=== PATIENT | female | born 1970 | race Caucasian/White ===

== ENCOUNTER → 2020-02-20 18:35 | Outpatient (CLI) | payer SELFPAY ==
--- NOTE | ~2020-02-20 | MM_ITS ---
EXAMINATION: MM screening demetrius BI w valerie HISTORY: Screening mammogram TECHNIQUE: Craniocaudal and mediolateral oblique 3-D tomosynthesis images were obtained and synthetic 2-D images were generated. CAD analysis was submitted and interpreted. COMPARISON: No prior mammogram is available for comparison at this institution. BREAST PARENCHYMAL COMPOSITION: The breasts are extremely dense, which lowers the sensitivity of mamm ography. FINDINGS: Benign calcified microhematomas are noted on the left. There is no evidence of suspicious m ass, calcification, or architectural distortion to suggest malignancy in either breast. There has bee n no suspicious interval change. IMPRESSION: 1. No mammographic evidence of malignancy. 2. Recommend routine screening mammography in one year. BI-RADS Category 2: Benign finding(s). Reviewed, dictated and finalized at location A[facility]
== END ==
PROVIDERS: Visit Provider Surgery Plastic and Reconstructive Surgery
DX: Z12.31 Encounter for screening mammogram for malignant neoplasm of breast (principal)
CPT/HCPCS: 77063; 77067

== ENCOUNTER 2020-03-08 01:12 | Outpatient (CLI) | payer OTHER, SELFPAY ==
[2020-03-08 20:15] LABS: SARS-CoV-2 RNA PCR Negative
== END 2020-03-08 01:13 | disposition home or self-care (01) ==
LOC: ANHCOVIDDT 01:12
PROVIDERS: Visit Provider Surgery Plastic and Reconstructive Surgery
DX: Z01.818 Encounter for other preprocedural examination (principal); Z20.828 Contact with and (suspected) exposure to other viral communicable diseases
CPT/HCPCS: 87635; C9803; U0003

== ENCOUNTER 2020-03-11 01:34 | Day surgery (SDC) | payer OTHER, SELFPAY ==
[2020-03-04 08:53] VITALS: BMI 20.4
--- NOTE | 2020-03-10 12:23 | WPDANESEPPF ---
Anes - Initial Pre Proc Eval Procedure: Operation Date: 03/11/20 12:00 Proposed Procedures p Bilateral Breast Augmentation - Baudilio Cordova MD Date/Time: 03/10/20 12:23 Surgeon: Baudilio Cordova MD Pre Op Diagnosis: Micromastia Patient Data Age: 49 Gender: F Height: 1.6 m Weight: 52.3 kg Allergies Allergy/AdvReac Type Severity Reaction Status Date / Time No Known Allergies Allergy Verified 03/11/20 10:16 Home Medications Medication Instructions Recorded Confirmed Type alprazolam 1 mg tablet 1 mg PO DAILY 02/13/20 03/11/20 History dextroamphetamine-amphetamine 30 mg PO BID 03/04/20 03/11/20 History [Adderall] docusate sodium 100 mg capsule 100 mg PO DAILY #14 cap 03/06/20 03/11/20 Rx ondansetron HCl 4 mg tablet 4 mg PO Q8H #28 tablet 03/06/20 03/11/20 Rx carisoprodol 350 mg tablet 350 mg PO TID PRN #21 tablet 03/10/20 03/11/20 Rx hydrocodone 5 mg-acetaminophen 325 1 tablet PO Q6H PRN #10 tablet 03/10/20 03/11/20 Rx mg tablet Patient hx anesthesia problems: none Family hx anesthesia problems: none PMFSH Past Medical History Medical History (Updated 03/10/20 @ 12:23 by Hugo James DO) Anxiety Heart murmur No pertinent family history 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 Surgical History Surgical History H/O section Hx of tonsillectomy Tubal ligation status Social History Social History Years smoked: 20 Smoking status: Current every day smoker Tobacco type: cigarettes Substance use: former Substance use type: former substance user Other substance usage details: see Dr office visit notes Living arrangements: with family Spiritual care concerns: No Anes - Eval Final PreProcedure Day of Procedure 03/10/20 12:23 Patient weight: normal Heart: regular rate and rhythm Lungs: clear to auscultation and normal air movement Airway: Mallampati scale class II Neurological: alert and oriented Last oral intake: >/= 8 hours ASA classification: III Emergent: no Anesthetic plan: proceed Anesthesia type and monitoring: general LMA and standard monitoring Informed Consent: The patient's anesthetic plan and its attendant risks and benefits were discussed with the patient/family/POA. Questions were solicited and answers provided to the satisfaction of the patient/family/POA.
[2020-03-11] VITALS (8 sets, daily range): BP systolic 125–169; BP diastolic 44–92; PULSE 67–91; RESP 11–16; TEMP 36.3–36.5; O2SAT 95–100; BMI 20.2
[2020-03-11] MEDS: LACTATED RINGERS 1,000 ML 30 ML IV CONT ×2 (11:12→14:22)
--- NOTE | 2020-03-11 12:25 | WPDHPUPDATE1 ---
History and Physical Update Update Date/Time: 03/11/20 12:25 History and Physical has been reviewed, including an updated exam of the patient. There are NO changes in the patient's condition. Risks, benefits, and alternatives have been discussed and questions answered. Patient agrees to proceed with procedure.
--- NOTE | 2020-03-11 12:35 | PM.PROC ---
Procedure Note - Detailed Date of procedure: 03/11/20 Pre-op diagnosis: Micromastia Post-op diagnosis: same Procedure performed: Bilateral augmentation mammaplasty Description of procedure: She is here today for bilateral breast augmentation. Previously and again today the risks, benefits, alternatives were discussed in extensive detail. I wanted her to be very realistic about the risks involved as well as expectations. We discussed aftercare and what to monitor for. Made sure answered all of her questions to her satisfaction today and consent was obtained. Marked in the preoperative holding area with their verification. The patient was taken to the operating room placed supine on the operating table. Anesthesia was provided by anesthesiology. A surgical time-out was taken. We cleansed the skin and 1% lidocaine and 0.25% Marcaine with epinephrine was used anesthetize as a field block. She was prepped and draped in a standard sterile fashion. Tegaderm nipple Decker were placed. A 15 blade used to make an incision along the inframammary fold. Dissection was continued at 45 degree angle until the chest wall as identified. I elevated above the pectoralis major in a dual plane 2 fashion. I incised the pectoralis major along its inferior border and completely released the inferior border leaving the medial border intact. I created a subpectoral pocket in the appropriate dimensions based on our preoperative planning for the implant. I then copiously irrigated with saline solution and verified a strict hemostasis. Next the use a triple antibiotic and Betadine containing solution to irrigate the pocket. I washed my gloves with the triple antibiotic and Betadine solution. We washed the implant immediately upon opening it with this solution and only opened it when we needed it. I used implant funnel and no-touch technique. The implant was introduced into the pocket using the funnel. Having verified positioning of the implant this was closed using 2-0 Vicryl followed by 3-0 Monocryl in a running subcuticular 4-0 Monocryl followed by tissue glue. Fluffs, Linden wrap, and surgical bra were placed. Patient was awoke and taken to PACU without difficulty. All instrument sponge counts were correct at the end of the case. Anesthesia: GLMA Surgeon: Baudilio Cordova MD Estimated blood loss (mL): 10 Drains: No Packing: No Pathology: none sent Complications: No immediate complications Condition: stable Disposition: PACU Findings: Dual plane 2 Bilateral Natrelle Inspira SoftTouch Breast Implant 415cc Right: [facility]-415 SN [id number] Left: [facility]-415 SN [id number]
[2020-03-11] MEDS: LIDO 1%/EPINEPHRINE 1:100,000 20 ML VIAL INFILTRATE (13:18)
--- NOTE | 2020-03-11 13:58 | SUR.OPER ---
RIGHT BREAST IMPLANT SSF 415, LOT [id number] EXP 2024-11-12. TO FIELD 1350. LEFT BREAST IMPLANT SSF 415, LOT [id number], EXP 2024-08-20. TO FIELD 1358. IMPLANT SIGN ON DOORWAY/ONLY STAFF IN ROOM.
--- NOTE | 2020-03-11 14:03 | SUR.OPER ---
PATIENT VERY SLEEPY IN PRE OP. TALKS VERY SOFTLY AND AT TIMES HARD TO UNDERSTAND. DENIES ANY SUBSTANCE USE. DR GAN AND DR CARDOSO AWARE. EYES SLIGHTLY BLOODSHOT AND GLASSY. PATIENT STATED SHE WAS UP ALL NIGHT. DENTURES OUT/REMAINING TEETH VERY POOR DENTITION.
[2020-03-11] MEDS: fentaNYL CITRATE INJ (*CRX) 100 MCG/2 ML VIAL 25 MCG IV PUSH ×2 (14:32→14:46)
== END 2020-03-11 16:00 | disposition home or self-care (01) ==
PROVIDERS: PCP Physician Assistant; Visit Provider Surgery Plastic and Reconstructive Surgery
PROC: (CPT 19325; principal; 2020-03-11 12:00)
DX: Z41.1 Encounter for cosmetic surgery (principal); N64.82 Hypoplasia of breast; F41.9 Anxiety disorder, unspecified; F17.210 Nicotine dependence, cigarettes, uncomplicated
CPT/HCPCS: 19325; 87635; C9803; J0690; J1100; J1580; J2405; J2704; J3010; J7120; U0003